=== PATIENT | female | born 1950 | race Caucasian/White ===

== ENCOUNTER → 2016-11-07 | Outpatient (CLI) | payer BC ==
[~2016-11-07] MED LIST: ASPI325T45 PO; DOXY100T17 PO; EZET10TA63 PO; FENO145T26 PO; LISI-729 PO; MULT-506 PO
[2016-11-07 17:51] LABS: AST/SGOT 28 U/L (15-37); BLOOD UREA NITROGEN 26 mg/dl (7-18); BUN/CREATININE RATIO 26.4 (10-20); CALCIUM 9.1 mg/dl (8.5-10.1); CARBON DIOXIDE 29 mmol/L (21-32); CHLORIDE 106 mmol/L (98-107); GLUCOSE 94 mg/dl (70-99); SODIUM 143 mmol/L (136-145)
[2016-11-07 17:58] LABS: ALB/GLOB RATIO 1.2 (0.9-2); ALKALINE PHOSPHATASE 43 U/L (45-117); ALT/SGPT 53 U/L (12-78); CHOLESTEROL 216 mg/dl (0-200); CHOLESTEROL/HDL RATIO 4.9; HDL CHOLESTEROL 44 mg/dl; LDL CHOLESTEROL CALCULATED 135 mg/dl; TRIGLYCERIDES 187 mg/dl (0-150); VERY LOW DENSITY LIPOPROT CALC 37 mg/dl
== END | disposition home or self-care (01) ==
LOC: C.LABPVFM 11:20
PROVIDERS: ATTEND Family Medicine
DX: I10 Essential (primary) hypertension (principal); E78.5 Hyperlipidemia, unspecified

== ENCOUNTER → 2016-11-11 | Outpatient (CLI) | payer BC | END | disposition home or self-care (01) | LOC: C.PAPS 08:00 | PROVIDERS: ATTEND Family Medicine | DX: Z00.00 Encounter for general adult medical examination without abnormal findings (principal); Z12.4 Encounter for screening for malignant neoplasm of cervix ==

== ENCOUNTER → 2017-05-08 | Outpatient (CLI) | payer OTHER, BC ==
[2017-05-08 18:19] LABS: ALT/SGPT 30 U/L (12-78); BLOOD UREA NITROGEN 16 mg/dl (7-18); BUN/CREATININE RATIO 18.2 (10-20); CALCIUM 9.1 mg/dl (8.5-10.1); CARBON DIOXIDE 31 mmol/L (21-32); CHLORIDE 104 mmol/L (98-107); CREATININE 0.86 mg/dl (0.60-1.20); GLUCOSE 101 mg/dl (70-99); POTASSIUM 4.2 mmol/L (3.5-5.1); SODIUM 141 mmol/L (136-145)
[2017-05-08 18:22] LABS: ALKALINE PHOSPHATASE 98 U/L (45-117); AST/SGOT 20 U/L (15-37); CHOLESTEROL 191 mg/dl (0-200); CHOLESTEROL/HDL RATIO 3.8; HDL CHOLESTEROL 50 mg/dl; LDL CHOLESTEROL CALCULATED 98 mg/dl; TRIGLYCERIDES 217 mg/dl (0-150); VERY LOW DENSITY LIPOPROT CALC 43 mg/dl
== END | disposition home or self-care (01) ==
LOC: C.LABPVFM 11:31
PROVIDERS: ATTEND Family Medicine
DX: I10 Essential (primary) hypertension (principal); E78.5 Hyperlipidemia, unspecified

== ENCOUNTER → 2017-09-04 | Outpatient (CLI) | payer OTHER ==
[~2017-09-04] MED LIST changes: +DOXY100C76 PO; +HYG25 PO; +LEVO1TAB33 PO; +LPR25 PO; +LPT40 PO; +LSN20 PO; +MECL1TAB42 PO; +ONDA4TAB10 SL
--- NOTE | 2017-09-04 11:50 | DIAGNOSTIC IMAGING REPORT ---
CHEST 2 VIEWS ROUTINE HISTORY: BRONCHITIS/COUGH COMPARISON: Chest 09/19/2014. FINDINGS: The heart is normal in size. No pleural effusions. No pneumothorax. The right lung is clear. Small focal density within the lingula. IMPRESSION: Small focal lingular density which could represent pneumonia or atelectasis. One month chest x-ray follow-up is recommended to ensure resolution. Electronically signed by: Audi Encinas M.D. 09/04/2017 11:48 AM Dictated Date/Time: 09/04/2017 11:46 AM
== END | disposition home or self-care (01) ==
LOC: C.RADPV 11:25
PROVIDERS: ATTEND Family Medicine
DX: J40 Bronchitis, not specified as acute or chronic (principal); R05 Cough

== ENCOUNTER 2017-09-06 09:00 | Emergency (ER) | payer OTHER ==
[~2017-09-06] VITALS: Ht 142.2 cm; Wt 74.6 kg
[~2017-09-06 09:00] MED LIST changes: -DOXY100C76 PO; -HYG25 PO; -LEVO1TAB33 PO; -LPR25 PO; -LPT40 PO; -LSN20 PO; -MECL1TAB42 PO; -ONDA4TAB10 SL
[2017-09-06 09:01] VITALS: Ht 142.2 cm; Wt 74.6 kg
[2017-09-06 09:05] VITALS: O2SAT 98
[2017-09-06] MEDS ORDERED: ONDANSETRON INJ 2 MG/ML 2 ML VIAL ONE (09:11)
[2017-09-06] MEDS ORDERED: KETOROLAC TROMETHAMINE 30 MG/ML VIAL IV STA (09:21)
[2017-09-06] MEDS ORDERED: MECLIZINE HCL 25 MG TAB PO STA (09:21)
[2017-09-06] MEDS ORDERED: SODIUM CHLORIDE 0.9% 500ML 500 ML IV STA (09:21)
--- NOTE | 2017-09-06 09:26 | EMERGENCY ROOM VISIT NOTE ---
History Report prepared by Keysha: Eric Sams Under the Supervision of: Dr. Nathan Jeter M.D. First contact with patient: 09:06 Chief Complaint: HEADACHE History of Present Illness The patient is a 67 year old female who presents to the Emergency Room with complaints of a waxing and waning headache that onset this morning when the patient woke up. She also notes associated dizziness and diaphoresis that were present when she woke up as well. The patient notes that her head pain is not present currently, but it has been "coming and going" since she woke up. She has also been nauseous this morning. She has been coughing for a significant amount of time. The patient was diagnosed with Pneumonia on Monday and has been given Doxycycline and Levaquin. She was hesitant to start the Levaquin as the side effects listed on the label concerned her. She has not taken any dosages of this medication to this point. Source of History: patient Onset: This morning Position: head Quality: other (Headache) Timing: waxes/wanes Associated Symptoms: + diaphoresis Note: Associated dizziness Review of Systems See HPI for pertinent positives & negatives. A total of 10 systems reviewed and were otherwise negative. Past Medical & Surgical Medical Problems: (1) Hypertension Nos (2) Hypertension Nos Surgical Problems: (1) H/O partial mastectomy (2) History of hip replacement Family History Omitted secondary to age. Social History Smoking Status: Never Smoker Marital Status: Housing Status: lives with family Occupation Status: retired Current/Historical Medications Scheduled Atorvastatin (Lipitor), 40 MG PO DAILY Chlorthalidone (Chlorthalidone), 0.5 TAB PO DAILY Doxycycline Monohydrate (Monodox), 100 MG PO BID Levofloxacin (Levaquin), 500 MG PO DAILY Lisinopril (Lisinopril), 20 MG PO DAILY Metoprolol Tartrate (Lopressor), 25 MG PO BID Ondasetron Odt (Zofran Odt), 4 MG SL Q6H Scheduled PRN Meclizine Hcl (Meclizine Hcl), 1 TAB PO TID PRN for Dizziness or Vertigo Allergies Coded Allergies: No Known Allergies (Unverified , 09/06/17) Physical Exam Vital Signs Date Time Temp Pulse Resp B/P (MAP) Pulse Ox O2 Delivery O2 Flow Rate FiO2 09/06/17 11:22 36.5 103 16 140/69 98 09/06/17 10:07 63 17 96 Room Air 09/06/17 09:15 64 09/06/17 09:05 98 Room Air 09/06/17 09:01 36.5 70 16 148/80 99 Room Air Physical Exam GENERAL: Patient is a healthy-appearing well-nourished female. HEAD: Normocephalic atraumatic EYES: Ocular movements intact pupils equal and react to light OROPHARYNX mucous membranes are moist no exudates present no erythema or edema present NECK: Supple no nuchal rigidity. No evidence of meningitis encephalitis on exam CHEST: Good equal expansion LUNGS: Clear and equal to auscultation CARDIAC: Normal S1 and S2 ABDOMEN: Soft nontender no guarding BACK: No CVA tenderness EXTREMITIES: No pain upon palpation normal muscle strength in all groups no clubbing cyanosis or edema NEURO: Patient is following commands and answering questions appropriately. Alert and oriented x3 Cranial Nerves 2-12 grossly intact Medical Decision & Procedures ER Provider Diagnostic Interpretation: Radiology results as stated below per my review and radiologist interpretation: CHEST ONE VIEW PORTABLE CLINICAL HISTORY: Shortness of breath. COMPARISON STUDY: Chest radiograph September 04, 2017. FINDINGS: Lung volumes are normal. No pneumothorax or pleural effusion is noted. There is no evidence for pulmonary edema. There is no convincing evidence for pneumonia. Possible slight opacity within the lingula shown on prior exam may still be present. Otherwise, the lungs appear clear. IMPRESSION: No significant change in possible mild lingular opacity since prior exam of September 04, 2017. This favors atelectasis however a small focus of pneumonia could appear similar. Follow-up chest radiograph in one month to ensure resolution is recommended. Electronically signed by: Gianluca Yañez M.D. 09/06/2017 9:45 AM Dictated Date/Time: 09/06/2017 9:[address] OF THE HEAD WITHOUT CONTRAST CLINICAL HISTORY: Altered mental status. Headache. COMPARISON STUDY: No previous studies for comparison. CT DOSE: 537.48 mGy.cm TECHNIQUE: Helical axial images of the head were obtained without IV contrast. Automated exposure control was utilized for the study. A dose lowering technique was utilized adhering to the principles of ALARA. FINDINGS: No acute intracranial hemorrhage, midline shift or mass effect is present. Brain volume is normal. Ventricular system is normal. Basilar cisterns are patent. There are no extra-axial collections. There are no findings to suggest acute dural sinus thrombosis or acute territorial infarct. There is minimal bilateral basal ganglia calcification. There are no significant calvarial abnormalities. Visualized portions of the mastoid air cells are clear. There is minimal secretions within the left sphenoid sinus. IMPRESSION: No acute intracranial findings. Electronically signed by: Gianluca Yañez M.D. 09/06/2017 9:53 AM Dictated Date/Time: 09/06/2017 9:50 AM Laboratory Results 09/06/17 09:10 Red Blood Count 4.45, Mean Corpuscular Volume 89.7, Mean Corpuscular Hemoglobin 29.7, Mean Corpuscular Hemoglobin Concent 33.1, Mean Platelet Volume 10.3, Neutrophils (%) (Auto) 55.5, Lymphocytes (%) (Auto) 30.8, Monocytes (%) (Auto) 9.9, Eosinophils (%) (Auto) 2.5, Basophils (%) (Auto) 1.0, Neutrophils # (Auto) 3.32, Lymphocytes # (Auto) 1.84, Monocytes # (Auto) 0.59, Eosinophils # (Auto) 0.15, Basophils # (Auto) 0.06 09/06/17 09:10 Test 09/06/17 09:10 09/06/17 09:50 White Blood Count 5.98 K/uL (4.8-10.8) Red Blood Count 4.45 M/uL (4.2-5.4) Hemoglobin 13.2 g/dL (12.0-16.0) Hematocrit 39.9 % (37-47) Mean Corpuscular Volume 89.7 fL (80-100) Mean Corpuscular Hemoglobin 29.7 pg (25-34) Mean Corpuscular Hemoglobin Concent 33.1 g/dl (32-36) Platelet Count 274 K/uL (130-400) Mean Platelet Volume 10.3 fL (7.4-10.4) Neutrophils (%) (Auto) 55.5 % Lymphocytes (%) (Auto) 30.8 % Monocytes (%) (Auto) 9.9 % Eosinophils (%) (Auto) 2.5 % Basophils (%) (Auto) 1.0 % Neutrophils # (Auto) 3.32 K/uL (1.4-6.5) Lymphocytes # (Auto) 1.84 K/uL (1.2-3.4) Monocytes # (Auto) 0.59 K/uL (0.11-0.59) Eosinophils # (Auto) 0.15 K/uL (0-0.5) Basophils # (Auto) 0.06 K/uL (0-0.2) RDW Standard Deviation 44.3 fL (36.4-46.3) RDW Coefficient of Variation 13.5 % (11.5-14.5) Immature Granulocyte % (Auto) 0.3 % Immature Granulocyte # (Auto) 0.02 K/uL (0.00-0.02) Anion Gap 8.0 mmol/L (3-11) Est Creatinine Clear Calc Drug Dose 55.7 ml/min Estimated GFR () 87.0 Estimated GFR (Non- 75.1 BUN/Creatinine Ratio 24.4 (10-20) Calcium Level 9.0 mg/dl (8.5-10.1) Total Bilirubin 0.4 mg/dl (0.2-1) Direct Bilirubin mg/dl (0-0.2) Aspartate Amino Transf (AST/SGOT) U/L (15-37) Alanine Aminotransferase (ALT/SGPT) 36 U/L (12-78) Alkaline Phosphatase 84 U/L (45-117) Total Creatine Kinase U/L (26-192) Creatine Kinase MB < 0.5 ng/ml (0.5-3.6) Creatine Kinase MB Ratio (0-3.0) Troponin I < 0.015 ng/ml (0-0.045) Total Protein 7.8 gm/dl (6.4-8.2) Albumin 3.5 gm/dl (3.4-5.0) Influenza Type A Antigen Neg for Influ A (NEG) Influenza Type B Antigen Neg for Influ B (NEG) Labs reviewed by ED physician. Medications Administered Medications (Trade) Dose Ordered Sig/Avtar Route Start Time Stop Time Status Last Admin Dose Admin Albuterol/ Ipratropium (Duoneb) 12 ml ONE ONCE INH 09/06/17 09:30 09/06/17 09:31 DC 09/06/17 10:04 12 ML Meclizine HCl (Antivert Tab) 25 mg NOW STAT PO 09/06/17 09:21 09/06/17 09:26 DC 09/06/17 09:35 25 MG Sodium Chloride 500 ml @ 999 mls/hr Q31M STAT IV 09/06/17 09:21 09/06/17 09:51 DC 09/06/17 09:21 999 MLS/HR Ketorolac Tromethamine (Toradol Inj) 30 mg NOW STAT IV 09/06/17 09:21 09/06/17 09:26 DC 09/06/17 09:37 30 MG Albuterol (Ventolin Hfa Inhaler) 2 puffs NOW STAT INH 09/06/17 10:36 09/06/17 10:37 DC 09/06/17 11:16 2 PUFFS ECG Indication: nausea Rate (beats per minute): 70 Rhythm: normal sinus Findings: other (Old inferior infarct present, No ST elevations or depressions. ) Change: Patient's electrocardiogram per my interpretation. ED Course 914: Past medical records reviewed. The patient was evaluated in room A4B. A complete history and physical examination was performed. 0921: Ordered Toradol 30 mg IV, Sodium Chloride 500 mL @ 999 mL/hr IV, Antivert 25 mg PO. 0930: Ordered Duoneb 12 mL INH. 1036: Ordered Albuterol 2 puffs. 1101: Upon reexamination the patient is resting in bed. I discussed results and treatment plan with the patient. She verbalizes agreement and understanding. The patient is ready for discharge. Medical Decision Differential diagnosis: Etiologies such as migraine headache, meningitis, sinusitis, CO exposure, ICH, SAH, infection, tumor, headache, sinus thrombosis, arterial dissection, as well as others were entertained. This is a 67-year-old female who presents emergency department complaining of multiple complaints. The patient is complaining of dizziness, headache, cough. She has no evidence of meningitis encephalitis on examination. The patient was given a DuoNeb reading treatment along with Toradol for the headache and meclizine for the dizziness. She was also given normal saline bolus. Repeat examination revealed the patient able to lie back. I do believe that the patient as well as to be discharged home for follow-up with her primary care physician. Both patient and were in agreement with the treatment plan. Medication Reconcilliation Current Medication List: was personally reviewed by me Blood Pressure Screening Patient's blood pressure: Elevated blood pressure Blood pressure disposition: Elevated BP felt to be situational Impression Primary Impression: Vertigo Additional Impression: Bronchitis Scribe Attestation The scribe's documentation has been prepared under my direction and personally reviewed by me in its entirety. I confirm that the note above accurately reflects all work, treatment, procedures, and medical decision making performed by me. Departure Information Dispostion Home / Self-Care Prescriptions Ondasetron Odt (ZOFRAN ODT) 4 Mg Tab 4 MG SL Q6H for Nausea, #6 TAB Prov: Nathan Jeter MD 09/06/17 Meclizine Hcl (MECLIZINE HCL) 25 Mg Tab 1 TAB PO TID Y for Dizziness or Vertigo for 10 Days, #30 TAB Prov: Nathan Jeter MD 09/06/17 Referrals Arnoldo Bashir M.D. (PCP) Forms HOME CARE DOCUMENTATION FORM, IMPORTANT VISIT INFORMATION Patient Instructions My [facility] Additional Instructions Use inhaler twice every 6 [address] Follow up with [address] Soler's office for continued dizziness You have been examined and treated today on an emergency basis only. This is not a substitute for, or an effort to provide, complete comprehensive medical care. It is impossible to recognize and treat all injuries or illnesses in a single emergency department visit. It is therefore important that you follow up closely with [facility]. Call as soon as possible for an appointment. Thank you for your time and consideration. I look forward to speaking with you again soon. Please don't hesitate to call us if you have any questions. Problem Qualifiers
[2017-09-06] MEDS ORDERED: ALBUT/IPRATROP 3MG/0.5MG NEB 3 ML VIAL INH ONE (09:30)
[2017-09-06 09:39] LABS: BASO ABS # 0.06 K/uL (0-0.2); EOS % 2.5 %; EOS ABS # 0.15 K/uL (0-0.5); HEMATOCRIT 39.9 % (37-47); HEMOGLOBIN 13.2 g/dL (12.0-16.0); IG# 0.02 K/uL (0.00-0.02); LYMPH % 30.8 %; LYMPH ABS # 1.84 K/uL (1.2-3.4); MEAN CELL VOLUME 89.7 fL (80-100); MEAN CORPUSCULAR HEMOGLOBIN 29.7 pg (25-34); MEAN CORPUSCULAR HGB CONC 33.1 g/dl (32-36); MEAN PLATELET VOLUME 10.3 fL (7.4-10.4); MONO % 9.9 %; MONO ABS # 0.59 K/uL (0.11-0.59); NEUT % 55.5 %; NEUT ABS # 3.32 K/uL (1.4-6.5); PLATELET COUNT 274 K/uL (130-400); RED CELL DISTRIBUTION WIDTH CV 13.5 % (11.5-14.5); RED CELL DISTRIBUTION WIDTH SD 44.3 fL (36.4-46.3); WHITE BLOOD COUNT 5.98 K/uL (4.8-10.8)
--- NOTE | 2017-09-06 09:46 | DIAGNOSTIC IMAGING REPORT ---
CHEST ONE VIEW PORTABLE CLINICAL HISTORY: Shortness of breath. COMPARISON STUDY: Chest radiograph September 04, 2017. FINDINGS: Lung volumes are normal. No pneumothorax or pleural effusion is noted. There is no evidence for pulmonary edema. There is no convincing evidence for pneumonia. Possible slight opacity within the lingula shown on prior exam may still be present. Otherwise, the lungs appear clear. IMPRESSION: No significant change in possible mild lingular opacity since prior exam of September 04, 2017. This favors atelectasis however a small focus of pneumonia could appear similar. Follow-up chest radiograph in one month to ensure resolution is recommended. Electronically signed by: Gianluca Yañez M.D. 09/06/2017 9:45 AM Dictated Date/Time: 09/06/2017 9:43 AM
--- NOTE | 2017-09-06 09:54 | DIAGNOSTIC IMAGING REPORT ---
CT OF THE HEAD WITHOUT CONTRAST CLINICAL HISTORY: Altered mental status. Headache. COMPARISON STUDY: No previous studies for comparison. CT DOSE: 537.48 mGy.cm TECHNIQUE: Helical axial images of the head were obtained without IV contrast. Automated exposure control was utilized for the study. A dose lowering technique was utilized adhering to the principles of ALARA. FINDINGS: No acute intracranial hemorrhage, midline shift or mass effect is present. Brain volume is normal. Ventricular system is normal. Basilar cisterns are patent. There are no extra-axial collections. There are no findings to suggest acute dural sinus thrombosis or acute territorial infarct. There is minimal bilateral basal ganglia calcification. There are no significant calvarial abnormalities. Visualized portions of the mastoid air cells are clear. There is minimal secretions within the left sphenoid sinus. IMPRESSION: No acute intracranial findings. Electronically signed by: Gianluca Yañez M.D. 09/06/2017 9:53 AM Dictated Date/Time: 09/06/2017 9:50 AM
[2017-09-06 10:02] LABS: ALBUMIN 3.5 gm/dl (3.4-5.0); ALT/SGPT 36 U/L (12-78); BLOOD UREA NITROGEN 20 mg/dl (7-18); CARBON DIOXIDE 29 mmol/L (21-32); CREATININE 0.82 mg/dl (0.60-1.20); GLUCOSE 119 mg/dl (70-99); SODIUM 137 mmol/L (136-145)
[2017-09-06 10:07] VITALS: PULSE 63; O2SAT 96
[2017-09-06 10:07] LABS: ALKALINE PHOSPHATASE 84 U/L (45-117); CKMB < 0.5 ng/ml (0.5-3.6); TOTAL PROTEIN 7.8 gm/dl (6.4-8.2)
[2017-09-06] MEDS ORDERED: LEVO1TAB33 PO (10:35)
[2017-09-06] MEDS ORDERED: LSN20 PO (10:35)
[2017-09-06] MEDS ORDERED: LPR25 PO (10:35)
[2017-09-06] MEDS ORDERED: HYG25 PO (10:35)
[2017-09-06] MEDS ORDERED: DOXY100C76 PO (10:35)
[2017-09-06] MEDS ORDERED: LPT40 PO (10:35)
[2017-09-06] MEDS ORDERED: ALBUTEROL HFA 8 GM INHALER INH STA (10:36)
[2017-09-06] MEDS ORDERED: MECL1TAB42 PO (10:38)
[2017-09-06] MEDS ORDERED: ONDA4TAB10 SL (10:38)
[2017-09-06 10:52] LABS: INFLUENZA B ANTIGEN Neg for Influ B (NEG)
[2017-09-06 11:22] VITALS: BP 140/69; PULSE 103; TEMP 36.5; O2SAT 98
--- NOTE | 2017-09-06 12:50 | Pharmacy Progress Note ---
ED Pharmacist Progress Note Date of Service: Sep 06, 2017. [facility] pharmacy called requesting substitution of regular release Zofran tablets instead of ODT as the ODT is not covered by the patient's insurance. Dr Jeter OK with substitution of regular release tabs. Pharmacy will substitute regular release tabs, same qnty and directions.
== END 2017-09-06 11:24 | disposition home or self-care (01) ==
LOC: EDBD 09:00 → C.EDA 09:02
DX: R42 Dizziness and giddiness (principal); J40 Bronchitis, not specified as acute or chronic; I10 Essential (primary) hypertension

== ENCOUNTER → 2017-10-27 | Outpatient (CLI) | payer OTHER ==
[~2017-10-27] MED LIST changes: -ASPI325T45 PO; +DOXY100C76 PO; -DOXY100T17 PO; -EZET10TA63 PO; -FENO145T26 PO; +HYG25 PO; +LEVO1TAB33 PO; -LISI-729 PO; +LPR25 PO; +LPT40 PO; +LSN20 PO; -MULT-506 PO; +ONDA4TAB10 SL
--- NOTE | 2017-10-27 11:14 | DIAGNOSTIC IMAGING REPORT ---
TWO VIEW CHEST CLINICAL HISTORY: Cough. Pneumonia. FINDINGS: PA and lateral chest radiographs are compared to study dated 09/06/2017. The cardiomediastinal silhouette is unremarkable. There is mild left basilar atelectasis. The lungs and pleural spaces are otherwise clear. Lingular opacities seen on 09/06/2017 have resolved. There is no pneumothorax. The skeletal structures are osteopenic. The bony thorax appears intact. Cholecystectomy clips are noted. IMPRESSION: No active disease in the chest. Electronically signed by: David Stoner M.D. 10/27/2017 11:13 AM Dictated Date/Time: 10/27/2017 11:12 AM
== END | disposition home or self-care (01) ==
LOC: C.LABPVFM 10:30
PROVIDERS: ATTEND Family Medicine
DX: R05 Cough (principal); J18.9 Pneumonia, unspecified organism

== ENCOUNTER → 2017-11-06 | Outpatient (CLI) | payer OTHER ==
[2017-11-06 13:33] LABS: ALBUMIN 3.8 gm/dl (3.4-5.0); ALT/SGPT 45 U/L (12-78); AST/SGOT 21 U/L (15-37); BLOOD UREA NITROGEN 16 mg/dl (7-18); CALCIUM 9.3 mg/dl (8.5-10.1); CARBON DIOXIDE 29 mmol/L (21-32); CREATININE 0.94 mg/dl (0.60-1.20); GLUCOSE 117 mg/dl (70-99); POTASSIUM 4.8 mmol/L (3.5-5.1); SODIUM 139 mmol/L (136-145)
[2017-11-06 13:45] LABS: ALKALINE PHOSPHATASE 86 U/L (45-117); CHOLESTEROL 350 mg/dl (0-200); LDL CHOLESTEROL CALCULATED 241 mg/dl; TOTAL PROTEIN 7.9 gm/dl (6.4-8.2)
== END | disposition home or self-care (01) ==
LOC: C.LABPVFM 11:20
PROVIDERS: ATTEND Family Medicine
DX: E78.5 Hyperlipidemia, unspecified (principal); R00.2 Palpitations

== ENCOUNTER 2020-02-13 06:43 | Inpatient (IN) ==
--- NOTE | 2020-02-04 14:23 | Anesthesiology Consultation ---
Date of Service February 04, 2020 Assessment & Plan (1) Encounter for pre-operative examination: Chart Review Chart Review: Acceptable Risk for Surgery (pending preop Covid testing 02/06) and Patient NOT seen in Pre Admission Testing Per nursing assessment 02/03/2020, patient denies any recent travel. No known COVID positive contacts are covered related symptoms. Patient scheduled for preop COVID testing 02/07/2020we will await results. History Surgery Operation Date: 02/13/20 07:30 Proposed Procedures p Right Total Hip Replacement - Glenroy Dewitt MD Height/Weight Height: 4 ft 8 in Weight: 71.668 kg Allergies Allergy/AdvReac Type Severity Reaction Status Date / Time No Known Allergies Allergy Unverified 02/03/20 15:27 Medications Home Medications Medication Instructions Recorded Confirmed Last Taken aspirin 81 mg tablet,delayed 81 mg PO PM tab 06/27/19 02/03/20 Unknown release multivitamin,ih-ijsi-[id number] 1 tab PO QAM 06/27/19 02/03/20 Unknown omeprazole 20 mg capsule,delayed 20 mg PO UD PRN cap 06/28/19 02/03/20 Unknown release blood-glucose meter #1 ea 11/11/19 02/03/20 Unknown lancets #50 ea 11/11/19 02/03/20 Unknown ezetimibe 10 mg tablet 10 mg PO DAILY #90 tab 01/22/20 02/03/20 Unknown metoprolol tartrate 25 mg tablet 25 mg PO BID #180 tab 01/22/20 02/03/20 Unknown atorvastatin 20 mg PO PM 02/03/20 02/03/20 Unknown lisinopril-hydrochlorothiazide 1 tab PO QAM 02/03/20 02/03/20 Unknown metformin 500 mg PO QAM 02/03/20 02/03/20 Unknown Past Medical History Medical History (Updated 02/04/20 @ 14:34 by Yanelis Lott PA-C) Benign hypertension Chronic reflux esophagitis Degenerative joint disease of right hip DM (diabetes mellitus), type 2 NO INSULIN Hyperlipidemia Legg-Perthes disease AFFECTS BOTH HIPS Past Family History Family History Mother Diabetes Other Dyslipidemia Hypertension Denies family history of Ovarian cancer Prostate cancer Myocardial infarction Breast cancer Colorectal cancer Past Surgical History Surgical History (Updated 02/04/20 @ 14:23 by Yanelis Lott PA-C) H/O partial mastectomy Small tumor removed out of breast History of biopsy HIP, R History of esophagogastroduodenoscopy (EGD) History of foot surgery R, [facility] History of hip replacement LEFT Hx of cholecystectomy Hx of knee surgery R Hx of wisdom tooth extraction Social History Smoking Status: Never smoker Do You Dip or Chew Tobacco: No Hx Alcohol Use: No Hx Substance Use: No substance use type: does not use Testing Laboratory Results 01/14/20= WBC: 4.43 H/H: 13.7/44.6 PLATELETS: 303 SODIUM: 140 POTASSIUM: 4.5 CHLORIDE: 106 CO2: 29 BUN: 21 CREATININE: 1.10 GLUCOSE: 103 HGB A1C:6.6 PT: 10.2 INR: 1.0 Electrocardiogram Date: 09/27/19 Findings: + SB @ (58bpm) Low voltage QRS. No significant change from 2018 EKG. Chest X-Ray Date: 09/27/19 Findings: + NAD Stress Test Date: 10/07/16 Type: exercise (Stress ECHO) Resting EF: 65 to 70% Resting LV Function: Hyperdynamic Resting RWMA: + none Valvular Disease: no significant valvular disease Negative stress echo for ischemia and MPHR 105%. Negative exercise EKG for ischemia at 105% MPHR. Type I diastolic dysfunction.
--- NOTE | 2020-02-08 14:18 | History and Physical Report ---
DATE OF ADMISSION: 02/13/2020 CHIEF COMPLAINT: Right hip pain. HISTORY OF PRESENT ILLNESS: The patient is a 69-year-old female with a known history of underlying bilateral hip dysplasia, who is now 5 years out from a left hip replacement. Left hip is doing well. She continues to be bothered by right hip pain and discomfort that has gradually gotten worse over time. She has been just putting up with it for the past several years. She says it bothers her like her left hip used to. She describes buttock pain, groin pain and thigh pain. No numbness or radicular symptoms. She does limp and as the day goes on, she limps more. She takes anti-inflammatories with minimal relief. She has difficulty going up and down stairs. She has difficulty putting her shoes and socks on. She would like to have her right hip replaced. PAST MEDICAL HISTORY: Past medical history significant for: 1. Hypertension. 2. Elevated cholesterol. 3. Early diabetes. 4. Mild obesity with BMI of 38. PAST SURGICAL HISTORY: Previous surgeries include: 1. Cholecystectomy. 2. Breast tumor removal. 3. Right knee arthroscopy. 4. Left hip replacement done on 10/07/2014. 5. Right foot Ornelas's neuroma excision. ALLERGIES: None. CURRENT MEDICINES: 1. Lipitor. 2. Lisinopril. 3. Hydrochlorothiazide. 4. Metoprolol. 5. Multivitamin. SOCIAL HISTORY: A 69-year-old white female. She is . She does not smoke. No significant alcohol intake. FAMILY HISTORY: Noncontributory. REVIEW OF SYSTEMS: Negative for any formal diabetes, but says she has early diabetes. No history of DVT or PE. No known bleeding problems. No chest pain or shortness of breath. PHYSICAL EXAMINATION: GENERAL: Physical examination shows fairly short, healthy appearing, middle-aged female. HEENT: Benign. NECK: Supple, no lymphadenopathy. LUNGS: Clear to auscultation. HEART: Regular rate and rhythm. ABDOMEN: Soft, nontender, nondistended. EXTREMITIES: Grossly neurovascularly intact except as follows. Examination of both hips reveals the patient walks with a bit of waddling gait. Examination of left hip reveals well-healed incision. She is about a centimeter longer on this side and the opposite side. Minimal pain with hip motion. Examination of the right hip reveals about a centimeter leg length discrepancy. She does have pain with motion. I can internally rotate her hip to about neutral. It recreates pain. Negative straight leg raise. She is neurologically intact. Examination of the right knee reveals small knee effusion. A little bit of bony hypertrophy. Range of motion 5-125. X-RAYS: X-rays of both hips reveal a dysplastic right hip. She still has joint space remaining, but clearly there is significant dysplasia. She has got a very short neck. The left hip replacement looks to be in good position. ASSESSMENT: A 69-year-old white female with a known history of underlying hip dysplasia along with hypertension, elevated cholesterol, borderline diabetes and obesity with right hip pain and discomfort. She is 5 years out from a left hip replacement, doing well and she would like her right hip replaced. PLAN: We will take her to the Operating Room and do a right hip replacement. The risks and benefits of this procedure were explained to the patient including but not limited to DVT, PE, , infection, neurological injury, vascular injury, bleeding problem, pain, limited range of motion, stiffness, failure to relieve her symptoms, incomplete relief of symptoms, need for further surgery in future, fracture, leg length inequality, nerve palsy, dislocation and need for revision surgery. The patient understands and desires to proceed. Informed consent was obtained. We will do the best we can to get her leg lengths as equal as possible. We will probably put her on some insulin sliding scale coverage postoperatively as her blood glucose is little bit elevated. We did talk about holding her lisinopril and the hydrochlorothiazide the morning of surgery and take the metoprolol. She is planning to be discharged to home using [facility]. She has got a very dysplastic femur and we will likely use the S-ROM system similar to what we did on the other side. GIORGIO
[~2020-02-13 06:43] MED LIST changes: +ACETAMINOPHEN 500 MG TAB PO SCH; +BUPIVACAINE 0.5 % 5 MG/1 ML PF 10ML VIAL ONE; +CEFAZOLIN 2000MG 2,000 MG/15 ML SYR IV SCH; -DOXY100C76 PO; +FAMOTIDINE 20 MG TAB PO SCH; +GABAPENTIN 300 MG CAP PO SCH; -HYG25 PO; -LEVO1TAB33 PO; -LPR25 PO; -LPT40 PO; +LR 500ML BOLUS, THEN 15ML/HR IV SCH; +LR 60ML/HR IV SCH; -LSN20 PO; +METOCLOPRAMIDE HCL 10 MG TABLET PO SCH; -ONDA4TAB10 SL; +TRANEXAMIC ACID 1,000 MG **IV Pre-op IV SCH
--- NOTE | 2020-02-13 06:47 | History & Physical Bridge Note ---
Date of Service February 13, 2020 History & Physical Bridge Note I have examined the patient, reviewed the History & Physical and in the interval since the performance of the History & Physical I have noted the following changes of clinical significance: no changes noted
[2020-02-13] MEDS ORDERED: MIDAZOLAM HCL 1 MG/ML 2ML VIAL ONE ×2 (07:59→08:03)
[2020-02-13] MEDS ORDERED: fentaNYL citrate 100 MCG/2 ML VIAL ONE ×2 (07:59→08:03)
[2020-02-13] MEDS ORDERED: PROPOFOL IV EMULSION 10 MG/ML 20 ML VIAL IV ONE ×2 (08:00)
[2020-02-13] MEDS ORDERED: LIDOCAINE HCL 2% 2 ML VIAL/AMP(20MG/ML) INFIL ONE (08:00)
[2020-02-13] MEDS ORDERED: ONDANSETRON INJ 2 MG/ML 2 ML VIAL ONE (08:00)
[2020-02-13] MEDS ORDERED: MoRPHine SULFATE PF 1 MG/ML 10 ML AMP/VIAL ONE (08:04)
[2020-02-13] MEDS ORDERED: ePHEDrine sulfate 50 MG/ML AMP IV PRN ×2 (08:25→12:34)
[2020-02-13] MEDS ORDERED: fentaNYL citrate 100 MCG/2 ML VIAL IV PRN (08:25)
[2020-02-13] MEDS ORDERED: ATROPINE SULFATE 0.1 MG/ML 10ML SYR IV PRN (08:25)
[2020-02-13] MEDS ORDERED: ONDANSETRON INJ 2 MG/ML 2 ML VIAL IV PRN ×2 (08:25→12:34)
[2020-02-13] MEDS ORDERED: BUPIVACAINE 0.5 % 5 MG/1 ML MPF 30ML VIAL ONE (08:41)
[2020-02-13] MEDS ORDERED: BACITRACIN INJ 50,000 UNIT VIAL ONE (08:41)
[2020-02-13] MEDS ORDERED: EPINEPHrine INJ 1 MG/ML AMP ONE (08:41)
[2020-02-13] MEDS ORDERED: GLYCOPYRROLATE 0.2 MG/ML VIAL ONE (09:49)
--- NOTE | 2020-02-13 11:27 | Post Operative Brief Note ---
PG Immediate Post Op with CF Date of Surgery February 13, 2020 Pre & Post Diagnosis Operation Date: 02/13/20 08:50 Pre-Op Diagnosis: Right Hip Degenerative Joint Disease due to Perthes Disease Post-Op Diagnosis: Right Hip Degenerative Joint Disease due to Perthes Disease I identified the patient and participated in the time-out.: Yes Procedure Operation Date: 02/13/20 08:50 Actual Procedures p Right Total Hip Arthroplasty, Uncemented(Right) - Glenroy Dewitt MD Surgeon Glenroy Dewitt MD Director Of Revenue Fabio, PAC Estimated Blood Loss 200 Findings Consistent with Post-Op Diagnosis Fluids 2000 cc Specimens Specimen Description: A. Right femoral head and neck. Drains Ervin Catheter Complications none Disposition Accompanied Patient To Recovery: Yes Disposition: Recovery Room
--- NOTE | 2020-02-13 11:50 | XRay Report ---
AP PELVIS, CROSSTABLE LATERAL RIGHT HIP History: Right total hip arthroplasty. Degenerative arthritis. Postop. FINDINGS: The patient is status post a right total hip arthroplasty. The hardware is intact. No fract ure or dislocation. Skin norma are in place. Evidence for prior left total hip arthroplasty. IMPRESSION: Right total hip arthroplasty. No evidence for hardware complication ACT 112: Negative or not required by law. Electronically signed by: Audi Encinas M.D. 02/13/2020 11:48 AM
[2020-02-13] MEDS ORDERED: NALOXONE HCL 0.08 MG in SYRINGE 1.8 ML IV PRN (12:34)
[2020-02-13] MEDS ORDERED: PROMETHAZINE HCL 6.25 MG in SODIUM CHLORIDE 0.9% 50 ML IV PRN (12:34)
[2020-02-13] MEDS ORDERED: LORazepam 1 MG TAB PO PRN (12:34)
[2020-02-13] MEDS ORDERED: MEPERIDINE HCL 25 MG/ML CARP/VIAL IV PRN (12:34)
[2020-02-13] MEDS ORDERED: NALOXONE HCL 1 MG in SODIUM CHLORIDE 0.9% 1000ML 1,000 ML IV PRN (12:34)
[2020-02-13] MEDS ORDERED: LACTATED RINGER'S 500 ML IV PRN (12:34)
[2020-02-13] MEDS ORDERED: KETOROLAC 30 MG/ML VIAL IV PRN (12:34)
[2020-02-13] MEDS ORDERED: MoRPHine SULFATE PF 1 MG/ML 10 ML AMP/VIAL INT SPINAL ONE (12:34)
[2020-02-13] MEDS ORDERED: DiphenhydrAMINE HCL 50 MG/ML VIAL IV PRN (12:34)
[2020-02-13] MEDS ORDERED: NALOXONE HCL 0.4 MG/1 ML VIAL/CARP IV PRN ×2 (12:34→13:44)
[2020-02-13] MEDS ORDERED: HYDROmorphone INJ 0.5 MG/0.5 ML SYR IV PRN (12:34)
--- NOTE | 2020-02-13 12:36 | Anesthesiology Progress Note ---
Date of Service February 13, 2020 Anesthesia Post Procedure Vital Signs Vital Signs: Temp Pulse Pulse Resp BP Pulse Ox 02/13/20 12:10 63 14 97/53 L 100 02/13/20 12:00 65 12 100/55 L 95 02/13/20 11:50 66 12 107/65 100 02/13/20 11:40 68 14 85/60 L 100 02/13/20 11:31 36.2 C L 72 14 96/63 L 100 02/13/20 07:45 51 L 18 108/58 L 100 02/13/20 07:08 36.9 C 57 L 20 137/78 98 Transfer of Care Handoff Completed per policy Notes Mental Status: alert / awake / arousable Patient Amnestic to Procedure: Yes Nausea / Vomiting: adequately controlled Pain: adequately controlled Airway Patency, RR, SpO2: stable & adequate BP & HR: stable & adequate Hydration State: stable & adequate Anesthetic Complications: no major complications apparent
[2020-02-13] MEDS ORDERED: DC INTRASPINAL MORPHINE SCH (12:45)
[2020-02-13] MEDS ORDERED: SODIUM CHLORIDE 0.9% 1000ML 1,000 ML IV SCH (12:45)
[2020-02-13] MEDS ORDERED: NO NARCOTICS OR SEDATIVES SCH (12:45)
[2020-02-13] MEDS ORDERED: GLUCAGON FOR INJ 1 MG VIAL SQ PRN (13:44)
[2020-02-13] MEDS ORDERED: GLUCOSE 40% GEL 15 GM TUBE PO PRN (13:44)
[2020-02-13] MEDS ORDERED: bisacodyL 10 MG SUPP PR PRN (13:44)
[2020-02-13] MEDS ORDERED: DEXTROSE 50% 50 ML SYRINGE IV PRN (13:44)
[2020-02-13] MEDS ORDERED: GLUCOSE 10 TABS/TUBE PO PRN (13:44)
[2020-02-13] MEDS ORDERED: CARBOHYDRATES FOR HYPOGLYCEMIA PO PRN (13:44)
[2020-02-13] MEDS ORDERED: NON-FORMULARY MEDICATION (Omeprazole 20 MG) PO PRN (13:44)
[2020-02-13] MEDS ORDERED: ALUMINUM/MAGNESIUM SUSP 30 ML UDC PO PRN (13:44)
[2020-02-13] MEDS ORDERED: METOCLOPRAMIDE HCL INJ 5 MG/ML 2 ML VIAL IV PRN (13:44)
[2020-02-13] MEDS ORDERED: MAGNESIUM HYDROXIDE SUSP 30 ML UDC PO PRN (13:44)
[2020-02-13] MEDS ORDERED: PHARMACY GLYCEMIC MGMT CONSULT PRN (13:59)
--- NOTE | 2020-02-13 14:13 | Pharmacy Report ---
Glycemic Control Consultation - Date of Service February 13, 2020 - Scope Scope: Glycemic Pharmacist consulted for glycemic control and to write orders per [facility] inpatient glycemic control protocol. - Objective Weight: 68.946 kg Accuchecks BSG (last 24hrs): 02/13/20 02/13/20 07:01 11:34 POC Glucose 110 H 131 H - Assessment & Plan Assessment & Plan: ASSESSMENT: * Pt is maintained on oral antidiabeticagent(metformin) as anoutpatient with excellent control per recent A1c (6.6%) * Oral agents are not recommended for inpatient use d/t drug interactions, changing PO intake, and difficulty titrating for acute hyper/hypoglycemia. * Recommended regimen for inpatient use is SQ insulin * Low stress weight based insulin dosing appropriate since patient has minimal risk factors for insulin resistance (i.e. no steroids). * Appropriate to DC insulin and resume outpatient antidiabetic regimen at discharge * Goal is to maintain BSGs <200 mg/dl (ideally <150 mg/dl) to prevent post op complications PLAN FOR INPATIENT GLYCEMIC CONTROL: * Basal insulin * Not needed based on A1c, pre-op BSGs, and minimal risk factors for insulin resistance * Bolus insulin * Utilize low stress weight based NovoLog parameters per scale [facility] has entered glycemic orders and is signing off of the glycemic consult. We will no longer be making adjustments to inpatient regimen. Please feel free to re-consult if needed. Thank you. * Please note that the plan above was derived based on current level of insulin resistance and hospital stress. These recommendations are appropriate for inpatient admission only. Plan of care upon discharge will need to be reassessed to avoid potential outpatient hypo/hyperglycemia. Thank you.
[2020-02-13] MEDS: ACETAMINOPHEN 500 MG TAB PO SCH ×2 (14:53→21:16)
[2020-02-13] MEDS: SODIUM CHLORIDE 0.9% 1000ML 1,000 ML IV SCH ×2 (14:53→23:34)
[2020-02-13] MEDS: INSULIN ASPART 100 UNITS/ML 3 ML PEN SC SCH ×2 (17:30→21:08)
[2020-02-13] MEDS: CEFAZOLIN 1000MG 1,000 MG/7.5 ML SYR IV SCH (17:40)
[2020-02-13] MEDS: ASCORBIC ACID 500 MG TAB PO SCH (17:40)
[2020-02-13] MEDS: Scopolamine CHECK PATCH PLACEMENT SCH ×2 (17:40→23:34)
[2020-02-13] MEDS: FERROUS GLUCONATE 324 MG TAB PO SCH (17:40)
--- NOTE | 2020-02-13 17:59 | Anesthesiology Progress Note ---
Date of Service February 13, 2020 Anesthesia Post Procedure Vital Signs Vital Signs: Temp Pulse Pulse Resp BP Pulse Ox 02/13/20 17:18 16 98 02/13/20 16:21 70 12 102/55 L 100 02/13/20 15:25 16 98 02/13/20 15:19 36.2 C L 63 16 102/58 L 98 02/13/20 14:32 16 100 02/13/20 14:30 36.8 C 64 16 117/70 100 02/13/20 13:50 36.4 C L 56 L 16 94/56 L 100 02/13/20 13:20 36.4 C L 63 16 97/57 L 100 02/13/20 13:15 66 14 98/48 L 100 02/13/20 13:10 36.3 C L 60 14 100/53 L 100 02/13/20 13:00 63 12 102/54 L 100 02/13/20 12:50 62 12 95/56 L 100 02/13/20 12:40 36.3 C L 64 12 102/58 L 100 02/13/20 12:30 62 12 93/53 L 100 02/13/20 12:20 63 12 89/61 L 100 02/13/20 12:10 63 14 97/53 L 100 02/13/20 12:00 65 12 100/55 L 95 02/13/20 11:50 66 12 107/65 100 02/13/20 11:40 68 14 85/60 L 100 02/13/20 11:31 36.2 C L 72 14 96/63 L 100 02/13/20 07:45 51 L 18 108/58 L 100 02/13/20 07:08 36.9 C 57 L 20 137/78 98 Transfer of Care Handoff Completed per policy Notes Mental Status: alert / awake / arousable Patient Amnestic to Procedure: Yes Nausea / Vomiting: adequately controlled Pain: adequately controlled Airway Patency, RR, SpO2: stable & adequate BP & HR: stable & adequate Hydration State: stable & adequate Anesthetic Complications: no major complications apparent, see Notes below and Pt Satisfied with anesthetic care Notes: The patient underwent a R total hip replacement by Dr. Esdras pearce. Dr. Don performed the anesthesia and gave her a spinal with intrathecal morphine. The patient had a scopolamine patch placed prior to going to the OR. The surgery progressed uneventfully and the patient was discharged from PACU. As soon as she arrived on the floor she noted that her vision would become "jumbled" when she looked straight out or down. It was better when she looked up. The patient had no other vision changes or other symptoms. The anesthesia team was called by the patient's nurse to evaluate her. On my evaluation the patient was sitting comfortably watching television while eating food. A scopalamine patch was on her L ear and was removed. The patient was able to track with both eyes. She was able to look down with both eyes followed by one eye each. The visual problems were worse when both eyes were opened. Her eyes appeared slightly dilated but otherwise normal. The patient was reevaluated forty minutes after the scopolamine patch was removed and stated that her vision is getting better. The patient's vision changes were likely due to the scopolamine patch given the absence of any other neurological symptoms and the partial resolution of symptoms with removal of the patch. I spoke to the patient and her and they are to let the nurse know if the vision symptoms worsen or any other concerning symptoms develop. I also spoke to the patient's nurse and Dr. Powell about the patient. The nurse is to call Dr. Powell with any concerns about the patient tonight.
[2020-02-13] MEDS ORDERED: TRANEXAMIC ACID / 0.7% NACL 1,000 MG/100 ML BAG IV SCH (18:00)
--- NOTE | 2020-02-13 18:01 | Operative Report ---
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 She had a markedly deformed femoral head and acetabulum. She had a very shallow acetabulum. She had a moderate-sized joint effusion. She had a very short femoral neck. Very dysplastic proximal femur. Her femoral neck was then about 70 degrees of anteversion. Fluids 2000 cc. Specimens Right femoral head sent for pathology. Drains None. Anesthesia Type Spinal MAC Complications none Disposition Accompanied Patient To Recovery: Yes Disposition: Recovery Room Indications Patient is a 69-year-old female is had a lifelong history of hip problems. 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 She is continue to try and maintain an active lifestyle but became markedly debilitated by her hip problems. She underwent a left hip replacement 5 years ago and is done well from this. In the past several years she is developed progressive pain and discomfort in her right hip. She had a very deformed proximal femur and deformed hip joint. She failed all conservative measures. She elected proceed with total hip arthroplasty. Gm Mccabe, physician conventions assistant/certified, was present for the entire procedure. He was critical with patient positioning prepping draping retraction, exposure, wound closure, and application of the sterile dressing. Description of Procedure Calos Mccabe, the physician conventions assistant, was present for the entire procedure. He was critical for patient positioning, prepping, draping, retraction, exposure, wound closure, and application of the sterile dressing. Operative implants consisted of: 1. 48 mm Biomet G7 acetabular shell. 2. 6.5 cancellus acetabular screws 1 of 35 mm length 1 to 20 mm length. 3. 48 mm outer diameter and 28 mm inner diameter highly cross-linked polyethylene liner. 4. [place] hole eliminator. 5. Center S-ROM 9 x 14 standard +4 femoral component. 6. Nitza 9 x 14 size B small proximal femoral sleeve. 7. +3/28 mm ceramic articular ball. Patient was taken to the operating identified and placed on the operating table supine position protectors were properly padded. IV antibiotics arrived by anesthesia team. Spinal anesthetic and been implemented holding area. Ervin catheter was placed in sterile fashion. Patient is then placed in the left l ateral decubitus position. An axillary roll was placed. A Stulberg hip positioner was used for positioning. The right hip and leg were then prepped and draped in usual sterile fashion. A posterior lateral approach of the right hip was then performed through a curvilinear incision centered over the greater trochanter. I cannot use the previous incision as it was too far anterior. Sharp dissection was got through subcutaneous tissue down to the level the the IT band and gluteal fascia. The IT band gluteal fascia were incised longitudinally in line with skin incision. The vastus lateralis distally was adherent to the IT band and I had to separate this. The greater trochanter bursa was excised. The piriformis and external rotators were tagged and taken off the posterior aspect hip joint capsule. Great care was taken throughout the procedure protect the sciatic nerve at all times. Posterior capsulotomy was then performed leaving a large flap for later repair. Hip was internally rotated and dislocated. A femoral neck osteotomy cut was then made just at the level of the lesser trochanter. The femoral head was removed and sent for pathology. The femur was retracted anteriorly. Attention drawn the acetabulum. The acetabular labrum was very enlarged. We excised this. The pulmonary fat was excised. Sequential reaming the acetabular was then performed again with size 43 and progressing up to 47. I did reamed slightly with a 48 reamer. A 48 mm acetabular shell was then placed in about 40 degrees lateral opening and 20 degrees of anteversion. Was fixed with two 6.5 cancellus acetabular screws. A trial liner was placed. Attention drawn the femur. The proximal femur was very dysplastic and deformed. I entered to this with the circular osteotome. I then entered the canal with the entry reamer by hand. I then reamed up and got fairly good chatter at 9. I was not sure the proximal segment coated take a larger proximal segment so I did not ream up any further. I then proceeded to prepare the femur proximally for the sleep. Her proximal dimensions were very narrow and we could not quite get this to sit down on the calcar cut. We reamed for the 14 B small sleeve. We placed the a sleeve and it would not quite sit down the calcar. We did modify this some but it was right against the cortical bone and I elected to leave it slightly proud. We then trialed this and the +4 offset stem seem to fit most appropriate similar to the opposite side with a +3 head. The hip was fully stable in all positions. The leg lengths seemed equal. The soft tissue tension seemed appropriate. I did elect to place these implants. Of note, we did spend quite a bit of time working on the proximal femur to make this a proximal sleeve fit appropriately. All trial implants were removed. An apex hole luminary was placed. A highly cross-linked polyethylene liner was placed. A S-ROM 9 x 14 standard +4 stem with a size B small sleeve was impacted in position. We did place this in about 30 degrees of anteversion relative to the trochanter which was about 40 degrees of retroversion relative to her normal anteversion. This was trialed previously and felt to be most appropriately. The +3/28 mm ceramic articular ball was placed. Hip was located and sent found to be stable. Attention drawn to closing. The wounds irrigated cups ounce pulsatile lavage solution. I did inject locally with 40 cc of half percent Marcaine with epinephrine. The posterior capsule and external rotators were repaired through drill holes in the posterior trochanter with #2 Tycron suture. The IT band gluteal fascia then closed with #1 PDS suture in running fashion with subcutaneous tissue then closed 2 layers the deep layer #1 Vicryl suture and subcutaneous tissues with 2-0 Dexon suture in a buried interrupted fashion and skin was closed skin norma. Leg was then cleaned dried a sterile dressing composed Xeroform, 4 x 4's, sterile ABD pad and foam tape was applied. Patient then transferred to the recovery room in stable condition. Patient tolerated procedure well no complications. I attest to the content of the Intraoperative Record and any orders documented therein. Any exceptions are noted below.
--- NOTE | 2020-02-13 18:15 | Progress Notes ---
DATE: 02/13/2020 SUBJECTIVE: A 69-year-old white female postop from a right total hip replacement. She is doing pretty well. Not really having any pain yet. She says she feels like she has got some floaters in her eyes. No chest pain or shortness of breath. Not feeling dizzy or lightheaded. OBJECTIVE: VITAL SIGNS: Temperature is 36.2. Vital signs are stable. GENERAL: Shows a pleasant elderly female. She is sitting up in bed and eating her dinner. She looks comfortable. HEENT: Her eye exam is benign. LUNGS: Clear to auscultation. HEART: Has regular rate and rhythm. ABDOMEN: Soft, nontender, nondistended. EXTREMITIES: Grossly neurovascularly intact except as follows: Examination of the right hip and leg reveals the leg lengths to be equal. Dressing is clean, dry and intact. Thigh is soft and supple. She can dorsiflex and plantarflex her foot appropriately. She is neurologically intact. X-RAYS: X-rays of the right hip from the recovery room are reviewed. It shows a right uncemented total hip arthroplasty. Components looked to be in good position. No signs of problems. ASSESSMENT: A 69-year-old white female postoperative from right hip replacement for severe Perthes disease and secondary degenerative joint disease. Her hip is located. She is neurologically intact. PLAN: 1. DVT prophylaxis including thigh-high TEDs, SCDs, and aspirin twice a day. 2. PT/OT. Weight bear as tolerated. Right total hip protocol. 3. Pain control, doing pretty well with current pain regimen. 4. IV antibiotics x24 hours. 5. Disposition: Plan to discharge to home with some home health once adequately recovered and medically stable.
[2020-02-13] MEDS: METOPROLOL TARTRATE 25 MG TAB PO SCH (20:21)
[2020-02-13] MEDS: ASPIRIN 81 MG ECTAB PO SCH (20:22)
[2020-02-13] MEDS: DOCUSATE SODIUM 100 MG CAP PO SCH (20:23)
[2020-02-13] MEDS ORDERED: ATORVASTATIN 20 MG TAB PO SCH (21:00)
[2020-02-13] MEDS ORDERED: SENNA 8.6 MG TAB PO SCH (21:00)
[2020-02-14] MEDS: CEFAZOLIN 1000MG 1,000 MG/7.5 ML SYR IV SCH (01:46)
[2020-02-14 03:24] VITALS: TEMP 98.2
[2020-02-14 05:26] LABS: Basophils # (auto) 0.03 K/uL (0-0.2); Basophils % (auto) 0.4 %; Eosinophils # (auto) 0.06 K/uL (0-0.5); Eosinophils % (auto) 0.8 %; Hematocrit (blood only) 26.8 % (37-47); Hemoglobin 8.9 g/dL (12.0-16.0); Immature Granulocytes # (auto) 0.02 K/uL (0.00-0.02); Immature Granulocytes % (auto) 0.3 %; Lymphocytes # (auto) 1.37 K/uL (1.2-3.4); Lymphocytes % (auto) 17.7 %; Mean Corpuscular Hemoglobin 30.3 pg (25-34); Mean Corpuscular Hgb Conc 33.2 g/dL (32-36); Mean Corpuscular Volume 91.2 fL (80-100); Mean Platelet Volume 10.7 fL (7.4-10.4); Monocytes # (auto) 0.69 K/uL (0.11-0.59); Monocytes % (auto) 8.9 %; Neutrophils # (auto) 5.55 K/uL (1.4-6.5); Neutrophils % (auto) 71.9 %; Platelet Count 195 K/uL (130-400); RDW Coefficient of Variation 12.6 % (11.5-14.5); RDW Standard Deviation 42.5 fL (36.4-46.3); Red Blood Count 2.94 M/uL (4.2-5.4); White Blood Count 7.72 K/uL (4.8-10.8)
[2020-02-14 05:49] LABS: BUN Creatinine Ratio 22.2 (10-20); Calcium 7.1 mg/dl (8.5-10.1); Creatinine Clr Calc Pharmacy 41.7 ml/min; Est GFR (African American) 65.9; Est GFR (Non-African American) 56.9; Potassium 4.3 mmol/L (3.5-5.1)
[2020-02-14] MEDS: ACETAMINOPHEN 500 MG TAB PO SCH ×2 (06:02→13:19)
[2020-02-14] MEDS ORDERED: TRAMADOL HCL 50 MG TABLET PO PRN (06:34)
[2020-02-14] MEDS ORDERED: ONDANSETRON INJ 2 MG/ML 2 ML VIAL IV PRN (06:34)
[2020-02-14] MEDS ORDERED: HYDROmorphone INJ 0.5 MG/0.5 ML SYR IV PRN (06:34)
[2020-02-14] MEDS: INSULIN ASPART 100 UNITS/ML 3 ML PEN SC SCH ×3 (07:59→12:39)
--- NOTE | 2020-02-14 08:26 | Anesthesiology Progress Note ---
Date of Service February 14, 2020 Anesthesia Post Procedure Vital Signs Vital Signs: Temp Pulse Pulse Resp BP Pulse Ox Pulse Ox 02/14/20 07:50 36.8 C 63 16 95/61 L 98 02/14/20 06:35 16 90 02/14/20 06:25 16 99 02/14/20 05:25 14 98 02/14/20 04:40 14 98 02/14/20 03:23 36.8 C 61 16 95/60 L 100 02/14/20 02:40 18 99 02/14/20 01:45 14 100 02/14/20 00:45 16 99 02/13/20 23:33 12 100 02/13/20 22:55 36.4 C L 66 18 109/73 100 02/13/20 22:45 16 99 02/13/20 21:30 14 100 02/13/20 20:20 58 L 18 97/60 L 100 02/13/20 19:16 16 100 02/13/20 19:15 16 100 100 02/13/20 19:09 36.2 C L 65 16 97/63 L 99 02/13/20 17:18 16 98 02/13/20 16:21 70 12 102/55 L 100 02/13/20 15:25 16 98 02/13/20 15:19 36.2 C L 63 16 102/58 L 98 02/13/20 14:32 16 100 02/13/20 14:30 36.8 C 64 16 117/70 100 02/13/20 13:50 36.4 C L 56 L 16 94/56 L 100 02/13/20 13:20 36.4 C L 63 16 97/57 L 100 02/13/20 13:15 66 14 98/48 L 100 02/13/20 13:10 36.3 C L 60 14 100/53 L 100 02/13/20 13:00 63 12 102/54 L 100 02/13/20 12:50 62 12 95/56 L 100 02/13/20 12:40 36.3 C L 64 12 102/58 L 100 02/13/20 12:30 62 12 93/53 L 100 02/13/20 12:20 63 12 89/61 L 100 02/13/20 12:10 63 14 97/53 L 100 02/13/20 12:00 65 12 100/55 L 95 02/13/20 11:50 66 12 107/65 100 02/13/20 11:40 68 14 85/60 L 100 02/13/20 11:31 36.2 C L 72 14 96/63 L 100 Pain Intensity Right Hip: Pain Intensity: 1 Notes Mental Status: alert / awake / arousable and participated in evaluation Patient Amnestic to Procedure: Yes Nausea / Vomiting: adequately controlled Pain: adequately controlled Airway Patency, RR, SpO2: stable & adequate BP & HR: stable & adequate Hydration State: stable & adequate Neuraxial Anesthesia: was administered and sensory block resolved Anesthetic Complications: no major complications apparent Notes: Patient had altered vision with scopolamine patch. Vision back to normal post removal.
[2020-02-14] MEDS ORDERED: LISINOPRIL/HCTZ 20/12.5MG 1 TAB TAB PO SCH (09:00)
[2020-02-14] MEDS ORDERED: MULTIVITAMIN TAB PO SCH (09:00)
[2020-02-14] MEDS ORDERED: MULTIVITAMIN TX IRON MINERALS PO SCH (09:00)
--- NOTE | 2020-02-14 09:08 | Progress Notes ---
DATE: 02/14/2020 SUBJECTIVE: A 69-year-old white female postop day 1 from right hip replacement. She is doing pretty well. Pain seems to be controlled. No chest pain or shortness of breath. Not feeling dizzy or lightheaded. OBJECTIVE: VITAL SIGNS: Temperature 36.8. Vital signs stable. GENERAL: Physical examination shows a pleasant, middle-aged female. She is sitting up in bed, looks pretty comfortable. EXTREMITIES: Examination of the right hip reveals leg lengths to be equal. Hip is located. She can dorsiflex and plantarflex her foot appropriately. She is neurologically intact. LABORATORY DATA: Hemoglobin 8.9. Hematocrit 26.8. Electrolytes are stable. ASSESSMENT: A 69-year-old white female postop day 1 from right hip replacement for a severe Perthes disease. She is doing pretty well. She is a bit anemic, but asymptomatic. Her pain seems to be controlled. Hip is located. She is neurologically intact. PLAN: 1. DVT prophylaxis include thigh-high TEDs, SCDs, and aspirin twice a day. 2. PT/OT, weightbear as tolerated. Right total hip protocol. 3. Pain control, doing pretty well with current pain regimen. 4. Disposition: She is hoping to be discharged to home. We will see how therapy goes today. Likely discharge today or tomorrow.
[2020-02-14] MEDS: ASPIRIN 81 MG ECTAB PO SCH (10:12)
[2020-02-14] MEDS: FERROUS GLUCONATE 324 MG TAB PO SCH (10:12)
[2020-02-14] MEDS: ASCORBIC ACID 500 MG TAB PO SCH (10:12)
[2020-02-14] MEDS: DOCUSATE SODIUM 100 MG CAP PO SCH (10:12)
[2020-02-14] MEDS: METOPROLOL TARTRATE 25 MG TAB PO SCH (10:13)
[2020-02-14] MEDS ORDERED: KETOROLAC TROMETHAMINE 15 MG/ML VIAL IV SCH (12:00)
[2020-02-14 12:15] VITALS: BP 95/60; PULSE 69
[2020-02-14] MEDS: Scopolamine CHECK PATCH PLACEMENT SCH (12:33)
[2020-02-14 13:37] VITALS: O2SAT 91
--- NOTE | 2020-02-21 12:51 | Discharge Summary ---
Date of Service February 21, 2020 Admission HPI Per Admitting Provider Well documented in the H & P Admission Exam (Per Admitting) Constitutional Well documented in the admission H & P Discharge Data Consultations 02/14/20 08:00 Consult Case Management - Discharge Planning Routine Procedures Performed Operation Date: 02/13/20 08:50 Actual Procedures p Right Total Hip Arthroplasty, Uncemented(Right) - Glenroy Dewitt MD Hospital Course (1) Status post total hip replacement, right: This patient is a 69 year old female admitted on 02/13/20 and underwent r ight total hip arthroplasty. She tolerated the procedure well and there were no complications. Transferred to the PACU post op and later to the orthopedic floor for further care. She was given ancef for antibiotic prophylaxis. She was also given EFRAÍN stockings, SCDs, and aspirin for DVT prophylaxis. Hemoglobin, hematocrit, and vital signs were monitored during her hospital stay and remained stable. She did have some post op anemia and received an iron supplement. Did not require any blood transfusions. There were no complications during her hospital stay. By post op day #1 the patient was tolerating a diabetic diet, pain was reasonably controlled with oral pain medicine, and she was participating in physical therapy. On post op day #1 the patient was discharged home and set up with home health care. She was given printed discharge instructions including prescriptions for extra strength tylenol, aspirin, Iron supplement and tramadol. Continue physical therapy, weight bearing as tolerated. Continue EFRAÍN stockings. Follow up approximately 2 weeks post op or sooner if there are problems or concerns. Coding Level of Care Code None Diagnoses Status post total hip replacement, right Z96.641
== END 2020-02-14 14:09 | disposition home health service (06) | DRG 470 ==
LOC: ASU 06:43 → 3E 11:32
DX: Z79.82 Long term (current) use of aspirin; M91.11 Juvenile osteochondrosis of head of femur [Legg-Calve-Perthes], right leg; I10 Essential (primary) hypertension; E66.9 Obesity, unspecified; Z79.84 Long term (current) use of oral hypoglycemic drugs; K21.9 Gastro-esophageal reflux disease without esophagitis; R73.03 Prediabetes; Z79.899 Other long term (current) drug therapy; Z68.38 Body mass index [BMI] 38.0-38.9, adult; M16.7 Other unilateral secondary osteoarthritis of hip; Z96.642 Presence of left artificial hip joint; Z83.3 Family history of diabetes mellitus; Z83.438 Family history of other disorder of lipoprotein metabolism and other lipidemia; Z82.49 Family history of ischemic heart disease and other diseases of the circulatory system

== ENCOUNTER 2020-10-19 06:30 | Observation (INO) ==
--- NOTE | 2020-10-07 09:04 | Anesthesiology Consultation ---
Date of Service October 07, 2020 Assessment & Plan (1) Encounter for pre-operative examination: COVID Status: As of 09/22 nurse assessment, patient denies travel to endemic area, known exposure/sick contacts, or symptoms of COVID19. Preoperative COVID19 testing to be completed on 10/13 per patient at [facility] [place]. BSG AM DOS. Chart Review Chart Review: Acceptable Risk for Surgery and Patient NOT seen in Pre Admission Testing History Surgery Operation Date: 10/19/20 08:10 Proposed Procedures p Laparoscopic Umbilical Hernia Repair - Celso Sanchez MD, FACS Height/Weight Height: 4 ft 8 in Weight: 65.771 kg Allergies Allergy/AdvReac Type Severity Reaction Status Date / Time No Known Allergies Allergy Verified 09/22/20 07:58 Medications Home Medications Medication Instructions Recorded Confirmed Last Taken omeprazole 20 mg capsule,delayed 20 mg PO UD PRN cap 06/28/19 09/22/20 Unknown release lancets 33 gauge #100 ea 02/19/20 09/17/20 Unknown blood sugar diagnostic #100 ea 02/24/20 09/17/20 Unknown metformin 500 mg tablet 500 mg PO QAM #90 tab 07/10/20 09/22/20 Unknown atorvastatin 20 mg tablet 20 mg PO PM #90 tab 07/27/20 09/22/20 Unknown amoxicillin 500 mg tablet 2,000 mg PO ONCE #4 tab 08/31/20 09/22/20 Unknown aspirin 81 mg tablet,delayed 81 mg PO HS 09/04/20 09/22/20 Unknown release metoprolol tartrate 25 mg tablet 25 mg PO BID #180 tab 09/21/20 09/22/20 Unknown multivitamin 1 tab PO QAM 09/22/20 09/22/20 Unknown lisinopril 20 1 tab PO QAM #90 tab 10/02/20 Unknown mg-hydrochlorothiazide 12.5 mg tablet Past Medical History Medical History (Updated 10/07/20 @ 09:00 by Andry Samson) Acid reflux disease UNDER CONTROL Angina pectoris Atypical chest pain Cardiac w/u in 2017 showed no evidence of ischemia at 105% MPHR. Ruled 2/2 GERD. Benign hypertension Degenerative joint disease (DJD) of hip Legg-Perthes dz DM (diabetes mellitus), type 2 Controlled, A1C 6.7% 07/2020 Hyperlipidemia Impaired fasting glucose Legg-Perthes disease AFFECTS BOTH HIPS Odynophagia Postnasal drip Ventricular ectopy Past Family History Family History Mother Diabetes Hypertension Father High cholesterol Other Dyslipidemia Denies family history of Ovarian cancer Prostate cancer Myocardial infarction Breast cancer Colorectal cancer Past Surgical History Surgical History (Updated 10/07/20 @ 08:53 by Andry Samson) H/O partial mastectomy Small tumor removed out of breast-BENIGN History of biopsy HIP, R History of esophagogastroduodenoscopy (EGD) History of foot surgery R, [facility] History of hip replacement LEFT History of total hip arthroplasty RIGHT-01/2020 Hx of cholecystectomy [facility] 2009 Hx of knee surgery R Hx of wisdom tooth extraction S/P hip replacement RIGHT Past Anesthesia History Pt reports h/o awareness during [facility]INDI. Social History Smoking Status: Never smoker Do You Dip or Chew Tobacco: No Hx Alcohol Use: No Hx Substance Use: No substance use type: does not use Testing Laboratory Results 10/05/20 WBC: 5.38 H/H: 12.6/38.7 PLATELETS: 308 SODIUM: 143 POTASSIUM: 4.7 CHLORIDE: 108 CO2: 32 BUN: 16 CREATININE: 0.80 GLUCOSE: 93 Electrocardiogram Date: 10/05/20 Findings: + SB @ (53bpm) Low voltage QRS. Stress Test Date: 10/07/16 Type: exercise Findings: + achieved max HR (105%) Resting EF: 65-70% Resting LV Function: normal Resting RWMA: + none Valvular Disease: no significant valvular disease Stress echo and EKG negative for ischemia at 105% MPHR. Chest pain began in stage I of Brue protocol and resolved one minute into recovery. No arrhythmia. Appropriate BP response to exercise. Fair exercise tolerance. Technically ifficult study, enhanced with IV definity. Rest echo showed no LVH. Grade I diastolic dysfunction.
[~2020-10-19 06:30] MED LIST changes: -ACETAMINOPHEN 500 MG TAB PO SCH; -BUPIVACAINE 0.5 % 5 MG/1 ML PF 10ML VIAL ONE; -CEFAZOLIN 2000MG 2,000 MG/15 ML SYR IV SCH; -FAMOTIDINE 20 MG TAB PO SCH; -GABAPENTIN 300 MG CAP PO SCH; +LR 15ML/HR IV SCH; -LR 500ML BOLUS, THEN 15ML/HR IV SCH; -LR 60ML/HR IV SCH; -METOCLOPRAMIDE HCL 10 MG TABLET PO SCH; -TRANEXAMIC ACID 1,000 MG **IV Pre-op IV SCH; +ceFAZolin 2000MG 2,000 MG/15 ML SYR IV SCH
--- NOTE | 2020-10-19 06:39 | History & Physical Bridge Note ---
Date of Service October 19, 2020 History & Physical Bridge Note I have examined the patient, reviewed the History & Physical and in the interval since the performance of the History & Physical I have noted the following changes of clinical significance: no changes noted
[2020-10-19] MEDS ORDERED: NEOSTIGMINE METHYLSULFATE 5 MG/5 ML SYR ONE (07:11)
[2020-10-19] MEDS ORDERED: ROCURONIUM BROMIDE 10 MG/ML 5 ML VIAL IV ONE (07:11)
[2020-10-19] MEDS ORDERED: PROPOFOL IV EMULSION 10 MG/ML 20 ML VIAL IV ONE (07:11)
[2020-10-19] MEDS ORDERED: LIDOCAINE HCL 2% 2 ML VIAL/AMP(20MG/ML) INFIL ONE (07:11)
[2020-10-19] MEDS ORDERED: DEXAMETHASONE SOD INJ 4 MG/ML VIAL ONE (07:11)
[2020-10-19] MEDS ORDERED: ONDANSETRON INJ 2 MG/ML 2 ML VIAL ONE (07:11)
[2020-10-19] MEDS ORDERED: GLYCOPYRROLATE 0.2 MG/ML VIAL ONE (07:11)
[2020-10-19] MEDS ORDERED: MIDAZOLAM HCL 1 MG/ML 2ML VIAL ONE (07:12)
[2020-10-19] MEDS ORDERED: fentaNYL citrate 100 MCG/2 ML VIAL ONE (07:12)
[2020-10-19] MEDS ORDERED: fentaNYL citrate 100 MCG/2 ML VIAL IV PRN (07:20)
[2020-10-19] MEDS ORDERED: ONDANSETRON INJ 2 MG/ML 2 ML VIAL IV PRN ×2 (07:20→10:48)
[2020-10-19] MEDS ORDERED: ATROPINE SULFATE 0.1 MG/ML 10ML SYR IV PRN (07:20)
[2020-10-19] MEDS ORDERED: ePHEDrine sulfate 50 MG/ML AMP IV PRN (07:20)
[2020-10-19] MEDS ORDERED: HYDROmorphone INJ 0.5 MG/0.5 ML SYR IV PRN ×2 (07:20→10:48)
[2020-10-19] MEDS ORDERED: BUPIVACAINE 0.5 % 5 MG/1 ML MPF 30ML VIAL ONE (08:26)
[2020-10-19] MEDS ORDERED: ePHEDrine sulfate 50 MG/ML SYR ONE (08:58)
[2020-10-19] MEDS ORDERED: PHENYLEPHRINE 100MCG/ML 5ML SYR ONE (08:58)
--- NOTE | 2020-10-19 09:44 | Post Operative Brief Note ---
PG Immediate Post Op with CF Date of Surgery October 19, 2020 Pre & Post Diagnosis Operation Date: 10/19/20 08:00 Pre-Op Diagnosis: Umbilical Hernia Post-Op Diagnosis: Umbilical Hernia I identified the patient and participated in the time-out.: Yes Procedure Operation Date: 10/19/20 08:00 Actual Procedures p Laparoscopic Umbilical Hernia Repair with Mesh(Not Applicable) - Celso Sanchez MD, FACS Surgeon Celso Sanchez MD, FACS Millinery Salesperson Diego Guy Estimated Blood Loss 10 Findings Consistent with Post-Op Diagnosis
[2020-10-19] MEDS ORDERED: ACETAMINOPHEN 1,000 MG/100 ML VIAL IV ONE (09:45)
--- NOTE | 2020-10-19 10:32 | Operative Report (OR) ---
DATE OF OPERATION: 10/19/2020 NAME OF OPERATION: Laparoscopic umbilical hernia repair. PREOPERATIVE DIAGNOSIS: Umbilical hernia. POSTOPERATIVE DIAGNOSIS: Umbilical hernia. STAFF SURGEON: Celso Sanchez MD. ANESTHESIA: General. CRYOLITE RECOVERY OPERATOR: Jw Guy PA-C. DESCRIPTION OF PROCEDURE: The patient was brought in the operating room and placed on the operating table in supine position. Pneumatic stockings, orogastric tube were placed. Her abdomen was prepped and draped in usual fashion. My assistant to the vice president helped with prepping, draping, repair of the hernia and closure of the wounds. 0.5% plain Marcaine was used to anesthetize all incisions. Incision was made in the left upper quadrant carrying dissection down, placing a Veress needle producing pneumoperitoneum. An 11 mm port placed at this level and then under visualization four 5 mm ports placed, 2 on the left, 2 in the right. On visualization, there was omentum within the hernia sac. This was taken down both bluntly and sharply. The defect was approximately 3-4 cm, 12.5 cm piece of Surgimesh was obtained. It was rolled and then placed into the abdomen. The suture was brought up through the hernia defect with the polypropylene toward the fascia. The silicone toward the bowel. Mesh was then secured in 2 rows, an outer and inner row of absorbable tacks. The suture was removed from the mesh. At this point, after appropriate hemostasis, the pneumoperitoneum was reduced and all ports were removed. The fascia in the left upper quadrant closed using 0 Vicryl suture, subcutaneous tissue reapproximated using 2-0 plain suture and then the skin reapproximated using subcuticular 4-0 Monocryl with Steri-Strips. The patient was transferred to recovery room in stable condition. I attest to the content of the Intraoperative Record and any orders documented therein. Any exception s are noted below.
[2020-10-19] MEDS ORDERED: ACETAMINOPHEN 325 MG TAB PO PRN (10:48)
[2020-10-19] MEDS ORDERED: PROMETHAZINE HCL 12.5 MG in SODIUM CHLORIDE 0.9% 50 ML IV PRN (10:48)
[2020-10-19] MEDS ORDERED: PROMETHAZINE HCL 25 MG in SODIUM CHLORIDE 0.9% 50 ML IV PRN (10:48)
[2020-10-19] MEDS ORDERED: IBUPROFEN 600 MG TAB PO PRN (10:48)
[2020-10-19] MEDS ORDERED: HYDROCODONE/ACETAMOPHEN 5/325MG TAB PO PRN ×2 (10:48)
[2020-10-19] MEDS: SODIUM CHLORIDE 0.9% 1000ML 1,000 ML IV SCH (10:58)
--- NOTE | 2020-10-19 13:01 | Hospitalist Consultation ---
Date of Consultation October 19, 2020 Assessment & Plan (1) Umbilical hernia: Small fat sac appreciated and resected by Dr. Sanchez Hernia repaired with mesh placement POD #0 Patient tolerating diet Anticipate discharge tomorrow per surgery Further management per general surgery (2) DM (diabetes mellitus), type 2: Hemoglobin A1c well managed and controlled Diabetes controlled with Metformin at home Continue diabetic diet while inpatient Do not anticipate need for insulin. However, will start sliding scale insulin with NovoLog due to surgery and stress of inpatient admission Further outpatient management (3) Benign hypertension: Blood pressure well controlled Continue usual outpatient medications including lisinopril, Lopressor. (4) History of hip replacement: Secondary to DJD and Legg-Perthes disease No current pain or complications Outpatient management (5) H/O partial mastectomy: Small tumor removed. This tumor was benign No history of breast cancer per patient (6) Hyperlipidemia: Continue atorvastatin Thank you very much for including us in the care of this patient. Comorbidities are well controlled. Patient with no acute complaints. We will sign off at this time. Please feel free to reconsult as needed. Please refer to Dr. Vázquez's addendum for further corrections and additions. Supervising Physician Co-Signing Physician Notes I personally saw and examined the patient. I verified all dinh points and agree with RADHA Mcgovern with the following exceptions and/or additions: None History of Present Illness Attending Physician: Celso Sanchez MD, [facility] History of Present Illness Attending: Dr. Vázquez This is a 70-year-old female that is currently postoperative day #0 for umbilical hernia repair. She did not require resection of bowel. She is seen at lunchtime and is eating solid foods without difficulty. Bowel sounds are present. She denies any significant abdominal pain. She has not had any flatus or bowel movement since the time of her surgery. She denies any fever or chills. Patient was seen in the primary care office on 09/04/2020 complaining of abdominal pain. At that point she was advised to go to ER for further pain and a referral was made for general surgery. She has a history of prior umbilical hernia repair with mesh.She was then seen by Dr. Sanchez in general surgery on 09/17/2020 and course of action was determined to be surgical repair with anticipated use of mesh.Patient underwent elective nonemergent umbilical repair of hernia with mesh placement today. At the time of my examination, she was doing well with no abdominal pain. Dressing was dry and intact. There is no need for bowel resection. It is anticipated the patient will probably go home tomorrow if she continues to do well. Patient has a past medical history including obesity with BMI of 33.4 kg/m, diabetes mellitus controlled with Metformin only, hyperlipidemia, benign essential hypertension, history of partial mastectomy, history of hip replacement, history of Lyme disease. Patient denies any fever chills. She has no nausea or vomiting. She denies any diarrhea. She has not had a bowel movement as of yet today. She has no other acute complaints. Allergies Allergy/AdvReac Type Severity Reaction Status Date / Time No Known Allergies Allergy Verified 10/19/20 06:43 Home Medications Medication Instructions Recorded Confirmed Type omeprazole 20 mg capsule,delayed 20 mg PO UD PRN cap 06/28/19 10/19/20 History release lancets 33 gauge #100 ea 02/19/20 09/17/20 Rx blood sugar diagnostic #100 ea 02/24/20 09/17/20 Rx metformin 500 mg tablet 500 mg PO QAM #90 tab 07/10/20 10/19/20 Rx atorvastatin 20 mg tablet 20 mg PO PM #90 tab 07/27/20 10/19/20 Rx amoxicillin 500 mg tablet 2,000 mg PO ONCE #4 tab 08/31/20 10/19/20 Rx aspirin 81 mg tablet,delayed 81 mg PO HS 09/04/20 10/19/20 History release metoprolol tartrate 25 mg tablet 25 mg PO BID #180 tab 09/21/20 10/19/20 Rx multivitamin 1 tab PO QAM 09/22/20 10/19/20 History lisinopril 20 1 tab PO QAM #90 tab 10/02/20 10/19/20 Rx mg-hydrochlorothiazide 12.5 mg tablet Patient History Medical History Acid reflux disease UNDER CONTROL Angina pectoris Atypical chest pain Cardiac w/u in 2016 showed no evidence of ischemia at 105% MPHR. Ruled 2/2 GERD. Benign hypertension Degenerative joint disease (DJD) of hip Legg-Perthes dz DM (diabetes mellitus), type 2 Controlled, A1C 6.7% 07/2020 Hyperlipidemia Impaired fasting glucose Legg-Perthes disease AFFECTS BOTH HIPS Odynophagia Postnasal drip Ventricular ectopy Surgical History H/O partial mastectomy Small tumor removed out of breast-BENIGN H/O umbilical hernia repair (10/19/20) Laparoscopic Umbilical Hernia Repair with Mesh Dr. Sanchez 10/19/2020 History of biopsy HIP, R History of esophagogastroduodenoscopy (EGD) History of foot surgery R, [facility] History of hip replacement LEFT History of total hip arthroplasty RIGHT-01/2020 Hx of cholecystectomy [facility] 2009 Hx of knee surgery R Hx of wisdom tooth extraction S/P hip replacement RIGHT Family History Mother Diabetes Hypertension Father High cholesterol Other Dyslipidemia Denies family history of Ovarian cancer Prostate cancer Myocardial infarction Breast cancer Colorectal cancer Social History Smoking Status: Never smoker Second Hand Exposure: Yes (FATHER SMOKED OUTSIDE); Do You Dip or Chew Tobacco: No; Hx Alcohol Use: No Hx Substance Use: No Preferred Language: Latvian Communication Ability: Effective Test Equipment Mechanic Required: No Beliefs That Will Affect Care: None marital status: Current Living Situation: Spouse current occupational status: retired How many Children do You have: 1 Other Information That Helps Us Care for You: No Feels Safe at Home: Yes Safety Concerns: Feels Safe At This Time caffeine: No Dental Care, Regularly: Yes Physical Activity Frequency: Does not Exercise Seatbelt Use: always Sunscreen Use: Yes Assistive Devices: Glasses Assistive Devices Comment: WILL WEAR GLASSES DOS Review of Systems Review of Systems: All systems reviewed & are unremarkable except as noted in HPI & below Physical Exam Physical Exam: GENERAL : No acute distress EYES: No icterus, gaze conjugate NOSE: No evidence of epistaxis MOUTH: No lesions or candidiasis NECK: Supple LUNGS: CTA B/L, no wheezes, rales or rhonchi HEART: Regular, rate controlled ABDOMEN: Dressings dry and intact. Soft, NT, ND, BS Present but quiet. Did not assess for deep rebound tenderness. No guarding EXTREMITIES: No LE edema, pedal pulses intact NEURO: A&OX3 Results & Data Results & Data ([facility]) Vital Signs (Past 12 Hours) Vital Signs Temp Pulse Pulse Resp BP Pulse Ox 10/19/20 12:45 52 L 16 112/57 L 91 10/19/20 11:45 49 L 16 114/66 98 10/19/20 11:16 36.5 C 49 L 16 116/68 100 10/19/20 10:45 36.4 C L 50 L 16 109/59 L 98 10/19/20 10:40 48 L 15 134/59 L 100 10/19/20 10:30 36.4 C L 52 L 16 128/62 95 10/19/20 10:20 50 L 18 131/55 L 99 10/19/20 10:10 51 L 17 132/59 L 100 10/19/20 10:00 51 L 20 135/61 100 10/19/20 09:56 36.2 C L 56 L 18 137/54 L 100 10/19/20 06:51 36.6 C 56 L 18 150/63 H 97 Laboratory Results Most recent labs reviewed from 10/05/2020 with no pertinent abnormalities. Most recent hemoglobin A1c was 6.7% on 07/28/[address] SCAN OF THE ABDOMEN AND PELVIS WITH IV CONTRAST CLINICAL HISTORY: Right lower quadrant abdominal pain. COMPARISON STUDY: Chest CT dated 06/28/2018. TECHNIQUE: Following the IV administration of 93 cc of Optiray 320, CT scan of the abdomen and pelvis is performed from the lung bases to the proximal femora. Images are reviewed in the axial, sagittal, and coronal planes. IV contrast was administered without complication. Oral contrast was utilized. A dose lowering technique was utilized adhering to the principles of ALARA. CT DOSE: 638.05 mGycm FINDINGS: Lung bases: The heart is normal in size and without pericardial effusion. There are coronary artery calcifications. The lung bases are clear. Liver: The contrast-enhanced liver is normal in size, contour, and attenuation. There is mild intrahepatic biliary ductal dilatation. The hepatic veins and p ortal veins are patent. Indeterminant hypodensities in the right lobe seen on images #31 and #86 may represent small hemangiomas but are not definitively characterized. Gallbladder: Surgically absent noting clips in the gallbladder fossa. Spleen: Normal in size and attenuation. Pancreas: Unremarkable. Adrenal glands: Unremarkable. Kidneys: The contrast enhanced kidneys are normal in size and without hydronephrosis. The kidneys enhance symmetrically. Scattered subcentimeter cortical hypodensities likely represent cysts but are too small for definitive characterization. Abdominal vasculature: The abdominal aorta is normal in course and caliber noting advanced atherosclerotic calcification. Bowel: There are scattered colonic diverticula without CT evidence of acute diverticulitis. No bowel obstruction is seen. Enteric contrast reaches the left colon. The appendix is well-visualized and normal. Peritoneum: There is no intraperitoneal free air or abdominal ascites. There is a large fat-containing umbilical hernia. Lymphadenopathy: None. Pelvic viscera: Evaluation of the pelvis is degraded by streak artifact from bilateral hip arthroplasties. The bladder, uterus, and adnexa are normal as visualized. Skeletal structures: The skeletal structures are osteopenic. There is mild lumbosacral spondylosis. There is a right-sided pars defect at L5. No lytic or blastic lesions are seen. Bilateral hip arthroplasties are in place. IMPRESSION: 1. There are no acute infectious or inflammatory findings in the abdomen or pelvis. 2. Normal appendix. 3. Large fat-containing umbilical hernia. 4. Additional findings as above. ACT 112: Negative or not required by law. Electronically signed by: David Stoner M.D. 09/04/2020 4:41 PM PG Care Time/CCT Total # of Minutes Spent Total Time Spent with Patient: Total time spent is greater than 50% in coordination of care (as documented) at patient's floor/unit and/or counseling patient: Coding Level of Care Code 27946 Inpt Consult Level 4 Diagnoses Umbilical hernia K42.9 DM (diabetes mellitus), type 2 E11.9 Benign hypertension I10 History of hip replacement Z96.649 H/O partial mastectomy Z90.10 Hyperlipidemia E78.5 Time Spent (min) 45
--- NOTE | 2020-10-19 14:25 | Anesthesiology Progress Note ---
Date of Service October 19, 2020 Anesthesia Post Procedure Vital Signs Vital Signs: Temp Pulse Pulse Resp BP Pulse Ox 10/19/20 13:50 36.5 C 57 L 16 105/63 91 10/19/20 12:45 52 L 16 112/57 L 91 10/19/20 11:45 49 L 16 114/66 98 10/19/20 11:16 36.5 C 49 L 16 116/68 100 10/19/20 10:45 36.4 C L 50 L 16 109/59 L 98 10/19/20 10:40 48 L 15 134/59 L 100 10/19/20 10:30 36.4 C L 52 L 16 128/62 95 10/19/20 10:20 50 L 18 131/55 L 99 10/19/20 10:10 51 L 17 132/59 L 100 10/19/20 10:00 51 L 20 135/61 100 10/19/20 09:56 36.2 C L 56 L 18 137/54 L 100 10/19/20 06:51 36.6 C 56 L 18 150/63 H 97 Transfer of Care Handoff Completed per policy Notes Mental Status: alert / awake / arousable and participated in evaluation Patient Amnestic to Procedure: Yes Nausea / Vomiting: adequately controlled Pain: adequately controlled Airway Patency, RR, SpO2: stable & adequate BP & HR: stable & adequate Hydration State: stable & adequate Anesthetic Complications: no major complications apparent and Pt Satisfied with anesthetic care
[2020-10-19] MEDS: ceFAZolin 1000MG 1,000 MG/7.5 ML SYR IV SCH (16:05)
[2020-10-19] MEDS ORDERED: GLUCAGON FOR INJ 1 MG VIAL SQ PRN (16:28)
[2020-10-19] MEDS ORDERED: CARBOHYDRATES FOR HYPOGLYCEMIA PO PRN (16:28)
[2020-10-19] MEDS ORDERED: DEXTROSE 50% 50 ML SYRINGE IV PRN (16:28)
[2020-10-19] MEDS ORDERED: GLUCOSE 10 TABS/TUBE PO PRN (16:28)
[2020-10-19] MEDS ORDERED: GLUCOSE 40% GEL 15 GM TUBE PO PRN (16:28)
[2020-10-19] MEDS: INSULIN ASPART 100 UNITS/ML 3 ML PEN SC SCH ×2 (18:51→21:00)
[2020-10-19] MEDS: DOCUSATE SODIUM/SENNA 50/8.6MG TAB PO SCH (20:36)
[2020-10-19] MEDS: METOPROLOL TARTRATE 25 MG TAB PO SCH (20:36)
[2020-10-19] MEDS: MAGNESIUM HYDROXIDE SUSP 30 ML UDC PO SCH (20:38)
[2020-10-19] MEDS ORDERED: ATORVASTATIN 20 MG TAB PO SCH (21:00)
[2020-10-20] MEDS: ceFAZolin 1000MG 1,000 MG/7.5 ML SYR IV SCH ×2 (00:23→09:25)
--- NOTE | 2020-10-20 08:04 | Anesthesiology Progress Note ---
Date of Service October 20, 2020 Anesthesia Post Procedure Vital Signs Vital Signs: Temp Pulse Pulse Resp BP BP Pulse Ox 10/20/20 07:32 36.6 C 53 L 16 115/66 97 10/20/20 02:18 36.8 C 60 14 114/58 L 97 10/19/20 22:46 36.8 C 63 16 101/68 93 10/19/20 20:33 65 113/58 L 95 10/19/20 19:27 36.8 C 63 14 105/59 L 93 10/19/20 15:24 36.5 C 62 18 106/72 90 10/19/20 13:50 36.5 C 57 L 16 105/63 91 10/19/20 12:45 52 L 16 112/57 L 91 10/19/20 11:45 49 L 16 114/66 98 10/19/20 11:16 36.5 C 49 L 16 116/68 100 10/19/20 10:45 36.4 C L 50 L 16 109/59 L 98 10/19/20 10:40 48 L 15 134/59 L 100 10/19/20 10:30 36.4 C L 52 L 16 128/62 95 10/19/20 10:20 50 L 18 131/55 L 99 10/19/20 10:10 51 L 17 132/59 L 100 10/19/20 10:00 51 L 20 135/61 100 10/19/20 09:56 36.2 C L 56 L 18 137/54 L 100 Notes Mental Status: alert / awake / arousable Patient Amnestic to Procedure: Yes Nausea / Vomiting: adequately controlled Pain: adequately controlled Airway Patency, RR, SpO2: stable & adequate BP & HR: stable & adequate Hydration State: stable & adequate Anesthetic Complications: no major complications apparent and Pt Satisfied with anesthetic care
[2020-10-20] MEDS: MAGNESIUM HYDROXIDE SUSP 30 ML UDC PO SCH (08:37)
[2020-10-20] MEDS: DOCUSATE SODIUM/SENNA 50/8.6MG TAB PO SCH (08:37)
[2020-10-20] MEDS: METOPROLOL TARTRATE 25 MG TAB PO SCH (08:37)
[2020-10-20] MEDS: SODIUM CHLORIDE 0.9% 1000ML 1,000 ML IV SCH (08:39)
[2020-10-20] MEDS ORDERED: LISINOPRIL/HCTZ 20/12.5MG 1 TAB TAB PO SCH (09:00)
[2020-10-20] MEDS: INSULIN ASPART 100 UNITS/ML 3 ML PEN SC SCH (09:40)
--- NOTE | 2020-10-21 09:26 | Discharge Summary (DS) ---
PRINCIPAL DIAGNOSIS: Umbilical hernia. PROCEDURES: The patient underwent laparoscopic umbilical hernia repair. HISTORY OF PRESENT ILLNESS: The patient is a 70-year-old female with enlarging umbilical hernia with a relatively large sac. HOSPITAL COURSE: The patient was brought into the hospital on 10/19/2020 where she underwent laparoscopic umbilical hernia repair with mesh. She did tolerate the procedure and did well overnight and was felt stable for discharge home on 10/20/2020 to be followed in the surgical clinic within 1-2 weeks.
== END 2020-10-20 10:30 | disposition home or self-care (01) ==
LOC: ASU 06:30 → 3E 06:30